=== PATIENT | male | born 1965 | race Caucasian/White ===

== ENCOUNTER 2021-09-14 17:01 | Outpatient (REF) | payer OTHER, SELFPAY | END 2021-09-14 17:02 | disposition home or self-care (01) | LOC: LBN 17:01 | DX: R39.89 Other symptoms and signs involving the genitourinary system (principal) | CPT/HCPCS: 87077; 87086; 87186 ==

== ENCOUNTER 2021-10-13 11:59 | Outpatient (CLI) | payer OTHER, SELFPAY | END 2021-10-13 12:00 | disposition home or self-care (01) | PROVIDERS: Visit Provider Urology | DX: R39.9 Unspecified symptoms and signs involving the genitourinary system (principal) | CPT/HCPCS: 87077; 87086; 87186 ==

== ENCOUNTER 2022-07-26 20:29 | Outpatient (REF) | payer OTHER, SELFPAY ==
[2022-07-26 22:51] LABS: Bacteria Packed HPF (Negative); C & S Indicated? C&S Done As Ordered; Crystals Negative HPF (Negative); Epithelial Cells Few HPF (Negative); Mucus Negative (Negative); WBC >50 HPF (0-5)
== END 2022-07-26 20:30 | disposition home or self-care (01) ==
LOC: LBN 20:29
PROVIDERS: Visit Provider Student in an Organized Health Care Education/Training Program
DX: N20.0 Calculus of kidney (principal)
CPT/HCPCS: 81015; 87086

== ENCOUNTER 2023-05-04 11:27 | Emergency (ER) | payer OTHER, SELFPAY ==
[2023-05-04 11:32] VITALS: BP 147/88; PULSE 98; RESP 17; TEMP 36.5; O2SAT 98
--- NOTE | 2023-05-04 11:50 | ED.GENADUL_ITS ---
HPI General Mode of arrival: wheelchair . Date/Time Provider Initiated Documentation: 05/04/23 11:38 . Limitations to Documentation: no limitations . Information obtained by: patient . History of Present Illness 58 year old M presents to the emergency department with the chief complaint of lower lip swelling, described as moderate, Patient started experiencing this hour(s) (2) and it has been constant. No relieving factors improve symptom(s), No exacerbating factors reported . Patient notes denies chest pain and shortness of breath. Patient did receive the following treatments prior to arrival, none Related Data Home Medications Medication Instructions Recorded Confirmed baclofen 10 mg tablet 10 mg PO TID 05/04/23 05/04/23 calcium 500 mg tablet 500 mg PO DAILY 05/04/23 05/04/23 cholecalciferol (vitamin D3) 50 2,000 unit PO DAILY 05/04/23 05/04/23 mcg (2,000 unit) tablet (Thera-D) ciprofloxacin HCl 500 mg tablet 500 mg PO BID #14 tabs 05/04/23 omeprazole 40 mg capsule,delayed 40 mg PO DAILY 05/04/23 05/04/23 release oxybutynin chloride 5 mg tablet 5 mg PO BID 05/04/23 05/04/23 tizanidine 4 mg capsule 4 mg PO TID PRN 05/04/23 05/04/23 Previous Rx's Medication Instructions Recorded ciprofloxacin HCl 500 mg tablet 500 mg PO BID #14 tabs 05/04/23 Allergies Allergy/AdvReac Type Severity Reaction Status Date / Time vancomycin Allergy Severe Skin Rash Verified 05/04/23 11:36 General Stated Complaint: Allergic JORDAN: 3 Review of Systems All systems reviewed & are unremarkable except as noted in HPI and below Constitutional Constitutional: Denies chills, Denies fever(s) and Denies weakness Cardiovascular Cardiovascular: Denies chest pain and Denies dyspnea Respiratory Respiratory: Denies cough and Denies dyspnea Gastrointestinal Gastrointestinal: Denies abdominal pain, Denies nausea and Denies vomiting Neurologic Neurologic: Denies weakness Exam Const General: no acute distress Orientation: alert HENMT Head: normal to inspection Ears: external ears normal General nose exam: external nose normal Mouth: moist mucous membranes Eyes General: appearance normal, both eyes and all related structures Neck Neck: normal visual inspection Resp Effort & Inspection: normal respiratory effort and able to speak in complete sentences Auscultation: clear to auscultation bilaterally Cardio Rate: regular rate Heart Sounds: no murmurs Skin General skin exam: no rashes or lesions noted Neuro General: patient alert and patient oriented x3 Extrem General: normal to inspection Psych Mental Status: mental status grossly normal Course Vital Signs Vital signs: Vital Signs Temperature 36.5 C 05/04/23 11:32 Pulse 98 H 05/04/23 11:32 Respiratory Rate 17 05/04/23 11:32 Blood Pressure 147/88 H 05/04/23 11:32 Pulse Oximetry 98 05/04/23 11:32 Temperature 36.5 C 05/04/23 11:32 Pulse 98 H 05/04/23 11:32 Respiratory Rate 17 05/04/23 11:32 Blood Pressure 147/88 H 05/04/23 11:32 Blood Pressure Position Sitting 05/04/23 11:32 Pulse Oximetry 98 05/04/23 11:32 Oxygen Delivery Method Room Air 05/04/23 11:32 Oxygen Flow Rate 0 05/04/23 11:32 Medical Decision Making 58 yo male with T6 injury and is wheel chair bound and self catheterizes, comes in with lower lip swelling. He apparently was started for UTI on Bactrim a week ago but then was switched to cephalexin yesterday. He says over the course the last week he had a rash on his arms which has now resolved and then this morning he noticed his lower lip was swollen. He otherwise feels well denies any difficulty breathing no GI symptoms swallowing and breathing normally. He is speaking in full sentences on arrival answering all questions appropriately, his lower lip is mildly swollen no posterior pharynx swelling uvula normal. Clear lung soft abdomen. Unclear if this is a reaction to the cephalexin or angioedema from a different source. Will observe to see if there is any worsening and give a dose of Decadron. [facility] determine what [facility] he should be switched to Swelling of the lip as decreased, patient stable no new symptoms, talking in full sentences, swallowing normally. Re[facility] culture [facility], his culture is growing Klebsiella pneumonia, resistant to ampicillin as well as nitrofurantoin and Bactrim. It is susceptible to ciprofloxacin. Unclear if he is actually having a reaction to the cephalexin but we will have him stop this and start ciprofloxacin. He is stable for discharge, advised to follow-up with primary care provider and return precautions given Differential Diagnosis Differential Diagnosis: allergic reaction, angioedema Quality:SDOH Health Related Social Needs: No Data to Display PFSH All Active Problems (Updated 05/04/23 @ 13:17 by Fabrice Pierre MD) Lip swelling (Acute) Social History Smoking/Tobacco Use Status: Never Smoking risk assessment performed?: Yes Alcohol Intake: current Alcohol Intake frequency: a few times a week Alcohol type: beer and hard liquor Drug use: Daily Substance use type: marijuana Details: USES AT [facility] TO [facility] Housing: house Do you feel safe at home: Yes Do you feel safe in your relationship?: Yes Discharge Plan Disposition Patient Disposition: Home Condition: Stable Discharge Details Clinical Impression: Lip swelling Primary Care Provider: Unknown,Unknown ED Provider: Fabrice Pierre Home Meds and New Rx's Prescriptions: New ciprofloxacin HCl 500 mg tablet 500 mg PO BID Qty: 14 0RF Continued omeprazole 40 mg capsule,delayed release(DR/EC) 40 mg PO DAILY baclofen 10 mg tablet 10 mg PO TID cholecalciferol (vitamin D3) [Thera-D] 50 mcg (2,000 unit) tablet 2,000 unit PO DAILY oxybutynin chloride 5 mg tablet 5 mg PO BID calcium 500 mg tablet 500 mg PO DAILY Held tizanidine 4 mg capsule 4 mg PO TID PRN Hold Instructions: Resume on 05/12/23. hold until ciprofloxacin is finished Discharge Instructions Additional Instructions: You should avoid taking the tizanidine until you are finished with the cip rofloxacin Follow-up with your primary care in a week if not better You can take Benadryl as needed, follow dosing directions on packaging If you feel more ill, have fevers or difficulty breathing or swallowing return to the emergency department for evaluation
[2023-05-04] MEDS: Dexamethasone 4 MG TAB 10 MG PO (12:04)
[2023-05-04 13:27] VITALS: BP 124/76; PULSE 82; RESP 20; O2SAT 99
== END 2023-05-04 13:30 | disposition home or self-care (01) ==
PROVIDERS: Emergency Provider Emergency Medicine
DX: R22.0 Localized swelling, mass and lump, head (principal)
CPT/HCPCS: 99283; J8540